=== PATIENT | male | born 1960 | race Caucasian/White ===

== ENCOUNTER → 2018-05-31 | Outpatient (CLI) | payer MEDICAID ==
--- NOTE | 2018-05-31 09:36 | RADIOLOGY REPORT (SQ) ---
EXAM DESCRIPTION: CHEST PA/LATERAL COMPLETED DATE/TIME: 05/31/2018 8:47 am REASON FOR STUDY: PRE-OP COMPARISON: 03/23/2009 EXAM PARAMETERS: NUMBER OF VIEWS: 2 TECHNIQUE: Digital Frontal and Lateral radiographic views of the chest acquired. RADIATION DOSE: NA LIMITATIONS: none FINDINGS: LUNGS AND PLEURA: No evidence of focal airspace disease, pleural effusion or pneumothorax. Indeterminate nodules at the lung bases, largest on the right measuring 7 mm. MEDIASTINUM AND HILAR STRUCTURES: No masses or contour abnormalities. HEART AND VASCULAR STRUCTURES: Normal heart size. Ectatic aorta. BONES: No acute findings. HARDWARE: None in the chest. OTHER: No other significant finding. IMPRESSION: No evidence of acute cardiopulmonary process. Indeterminate basilar nodules. Recommend comparison with recent outside priors or dedicated chest CT for further characterization. TECHNICAL DOCUMENTATION: JOB ID: [id number] [email or web address]- All Rights Reserved Reading location - IP/workstation name: [email or web address]
[2018-05-31 09:56] LABS: ABSOLUTE EOSINOPHILS # (AUTO) 0.2 10^3/uL (0.0-0.6); ABSOLUTE LYMPHOCYTES (AUTO) 1.4 10^3/uL (0.5-4.7); ABSOLUTE MONOCYTES (AUTO) 0.8 10^3/uL (0.1-1.4); ABSOLUTE NEUT (AUTO) 2.3 10^3/uL (1.7-8.2); BASOPHILS % (AUTO) 0.4 % (0-2); EOSINOPHILS % (AUTO) 4.3 % (0-6); HEMATOCRIT 34.9 % (37.9-51.0); HEMOGLOBIN 12.1 g/dL (13.5-17.0); LYMPHOCYTES % (AUTO) 29.5 % (13-45); MEAN CORPUSCULAR HEMOGLOBIN 33.6 pg (27.0-33.4); MEAN CORPUSCULAR HGB CONC 34.6 g/dL (32.0-36.0); MEAN CORPUSCULAR VOLUME 97 fl (80-97); MONOCYTES % (AUTO) 17.8 % (3-13); PLATELET COUNT 153 10^3/uL (150-450); RED BLOOD COUNT 3.59 10^6/uL (4.35-5.55); RED CELL DISTRIBUTION WIDTH 14.2 % (11.5-14.0); TOTAL CELLS COUNTED % (AUTO) 100 %; WHITE BLOOD COUNT 4.7 10^3/uL (4.0-10.5)
[2018-05-31 10:13] LABS: APPEARANCE,URINE CLEAR; BILIRUBIN,URINE NEGATIVE (NEGATIVE); COLOR,URINE STRAW; GLUCOSE, URINE NEGATIVE (NEGATIVE); KETONES,URINE NEGATIVE (NEGATIVE); LEUKOCYTE ESTERASE,URINE NEGATIVE (NEGATIVE); NITRITE,URINE NEGATIVE (NEGATIVE); PROTEIN,URINE NEGATIVE (NEGATIVE); URINE SPECIFIC GRAVITY 1.003; UROBILINOGEN,URINE NEGATIVE mg/dL (<2.0)
[2018-05-31 10:19] LABS: ANION GAP 11 (5-19); BLOOD UREA NITROGEN 10 mg/dL (7-20); CALCIUM 9.2 mg/dL (8.4-10.2); CARBON DIOXIDE 27 mmol/L (22-30); CHLORIDE 100 mmol/L (98-107); GLUCOSE 72 mg/dL (75-110); POTASSIUM 4.7 mmol/L (3.6-5.0); SODIUM 137.9 mmol/L (137-145)
--- NOTE | 2018-05-31 20:58 | EKG REPORT ---
SEVERITY:- BORDERLINE ECG - SINUS RHYTHM BORDERLINE ST ELEVATION, ANTERIOR LEADS : Confirmed by: Apple Holley MD 31-May-2018 20:56:54
== END ==
LOC: OD 08:13
PROVIDERS: ATTEND Orthopaedic Surgery
DX: Z01.810 Encounter for preprocedural cardiovascular examination (principal); Z01.812 Encounter for preprocedural laboratory examination; Z01.818 Encounter for other preprocedural examination
CPT/HCPCS: 36415; 71046; 80048; 81001; 85025; 93005; 93010